=== PATIENT | male | born 1965 | race Caucasian/White ===

== ENCOUNTER 2021-10-26 20:08 | Inpatient (IN) | payer OTHER ==
[~2021-10-26] VITALS: Ht 172.7 cm; Wt 65.8 kg
--- NOTE | 2021-10-27 02:33 | NUR ---
PT REFUSED PLACEMENT OF WHIPPLE CATH AT THIS TIME.
[2021-10-27 05:10] LABS: HEMOGLOBIN 15.3 gm/dl (14.0-17.5); RED BLOOD COUNT 5.02 M/UL (4.20-5.50); WHITE BLOOD COUNT 11.1 K/UL (4.5-11.0)
[2021-10-27 05:21] LABS: BUN/CREATININE RATIO 24 (0-10)
[2021-10-27 07:22] LABS: HEMOGLOBIN 15.4 gm/dl (14.0-17.5); RED BLOOD COUNT 4.88 M/UL (4.20-5.50); WHITE BLOOD COUNT 8.5 K/UL (4.5-11.0)
[2021-10-27 07:45] LABS: BUN/CREATININE RATIO 21 (0-10)
[2021-10-27] MEDS ORDERED: VALPROIC A250 MG/5 M PO (15:47)
[2021-10-27] MEDS ORDERED: OMEPRAZOLE MAGN20 MG PO (15:47)
[2021-10-27] MEDS ORDERED: CLONIDINE HCL0.1 MG PO (15:48)
[2021-10-28 05:09] LABS: HEMOGLOBIN 12.9 gm/dl (14.0-17.5); RED BLOOD COUNT 4.11 M/UL (4.20-5.50); WHITE BLOOD COUNT 4.5 K/UL (4.5-11.0)
[2021-10-28 06:03] LABS: BUN/CREATININE RATIO 20 (0-10)
[2021-10-29 05:07] LABS: BUN/CREATININE RATIO 19 (0-10)
[2021-10-29 05:35] LABS: HEMOGLOBIN 13.2 gm/dl (14.0-17.5); RED BLOOD COUNT 4.2 M/UL (4.20-5.50); WHITE BLOOD COUNT 4.3 K/UL (4.5-11.0)
--- NOTE | 2021-10-29 15:43 | NUR ---
NG WAS PULLED OUT BY PATIENT. PER DR JO NG NEEDS TO BE PUT BACK IN. PATIENT TOLERATED PROCEDURE WELL. ORDER SENT FOR CXRAY TO CONFIRM PLACEMENT.
[2021-10-31 05:57] LABS: HEMOGLOBIN 12.3 gm/dl (14.0-17.5); RED BLOOD COUNT 3.92 M/UL (4.20-5.50)
[2021-10-31 05:58] LABS: WHITE BLOOD COUNT 5.8 K/UL (4.5-11.0)
[2021-10-31 06:29] LABS: BUN/CREATININE RATIO 20 (0-10)
--- NOTE | 2021-11-01 05:20 | NUR ---
I went into patient's room because his call light was going off. When I opened the door, patient was in the bathroom. Guard present at bedside. Patient yelled from bathroom that he needed a new gown and a towel. I went to go get these items and returned. I asked patient if he needed anything else before I left and he stated "no." As I was about to shut the door, the patient stated to his guard that "I fell in the bathroom right then, I slipped and hit my knee and head." Patient assessed, no injuries noted. BP was 168/94, HR 88, RR 18, and afebrile. MD Phillips and [employer] Margie notified. No new orders at this time. Alan stated to "monitor patient and notify of any mental changes." Patient is now a high fall risk. Double bed alarms placed, patient educated on need to ask for assistance, yellow gown and yellow socks applied.
--- NOTE | 2021-11-01 08:00 | NUR ---
PATIENT HIT CALL LIGHT THIS MORNING STATING HE IS TIRED OF HEARING THE BED ALARM AND STRIP ALARM. PATIENT STATES HE DID NOT FALL IN THE BATHROOM LAST NIGHT. PATIENT STATED HE LEANED FORWARD WHILE IN THE SHOWER AND HAVING HIS FOOT PROPED UP ON THE BENCH AND HIT HIS HEAD AGAINST THE WALL DUE TO BLOOD COMING FROM HIS INCISION SITE, HE FREAKED OUT A LITTLE AND LEANING A LITTLE TO MUCH FORWARD. GUARD AND PATIENT REQUEST BED ALARM BE TURNED OFF GUARD DOES NOT LEAVE THE PATIENTS SIDE EVEN WHEN HE GETS UP TO GO TO THE BATHROOM. HE STATES HE HAS HIS EYES ON HIM AT ALL TIMES. DR RYAN IN ROOM WITH PATIENT AND NOTIFIED OF THE SITUATION LAST NIGHT, OK FOR BED ALARM TO BE TURNED OFF.
--- NOTE | 2021-11-01 14:30 | NUR ---
HOURLY ROUNDED ON PATIENT, PATIENT HAD UNHOOKED HIS OWN IV, LEFT IT RUNNING AND LAYING ON THE GROUND STILL RUNNING INSTEAD OF CALLING FOR ASSISTANCE. GUARD PRESENT IN THE ROOM. PATIENT EDUCATED ON IMPORTANCE OF CALLING FOR ASSISTANCE TO BE DISCONNECTED FROM IV. PATIENT VOCALIZED UNDERSTANDING.
[2021-11-02 06:06] LABS: HEMOGLOBIN 13.1 gm/dl (14.0-17.5); RED BLOOD COUNT 4.15 M/UL (4.20-5.50); WHITE BLOOD COUNT 4.7 K/UL (4.5-11.0)
[2021-11-02 06:27] LABS: BUN/CREATININE RATIO 23 (0-10)
[2021-11-03] MEDS ORDERED: AMLODIPINE BESYL5 MG PO (08:35)
[2021-11-03] MEDS ORDERED: KEPPRA 500 MG500 MG PO (08:35)
[2021-11-03] MEDS ORDERED: CLONIDINE HCL0.1 MG PO (08:36)
[2021-11-03] MEDS ORDERED: HYDROCODON-ACE1 EAC2 PO (18:26)
== END 2021-11-03 12:02 | disposition home or self-care (01) | DRG 337 ==
LOC: MED SURG 4 20:35
PROVIDERS: Internal Medicine Infectious Disease; Physician Assistant; Surgery; ADMIT Internal Medicine
PROC: 0DN80ZZ Release Small Intestine, Open Approach (ICD-10-PCS; principal; 2021-10-29 09:15)
DX: K56.50 Intestinal adhesions [bands], unspecified as to partial versus complete obstruction (principal); G40.909 Epilepsy, unspecified, not intractable, without status epilepticus; K21.9 Gastro-esophageal reflux disease without esophagitis; I16.0 Hypertensive urgency; F41.9 Anxiety disorder, unspecified; R00.0 Tachycardia, unspecified; I10 Essential (primary) hypertension; R50.9 Fever, unspecified; K56.7 Ileus, unspecified; D69.6 Thrombocytopenia, unspecified; Z82.49 Family history of ischemic heart disease and other diseases of the circulatory system; Z86.010 Personal history of colon polyps; Z90.49 Acquired absence of other specified parts of digestive tract; Z93.0 Tracheostomy status; Z93.1 Gastrostomy status; Z98.890 Other specified postprocedural states
CPT/HCPCS: 36415; 74018; 74019; 80048; 80053; 80202; 81001; 82550; 82553; 83036; 83735; 84100; 84439; 84443; 84484; 85025; 85610; 85730; 86140; 87040; 87086; 93005; 94760; C9113; J0360; J1100; J1170; J1650; J1953; J2185; J2250; J2270; J2370; J2405; J2550; J2704; J2710; J3010; J3370; J7070; Q9963